=== PATIENT | male | born 1985 | race Caucasian/White ===

== ENCOUNTER 2020-09-26 07:04 | Day surgery (SDC) | payer OTHER ==
[~2020-09-26 07:04] MED LIST: Lactated Ringers 1,000 ML IV SCH; Lidocaine 1%/Sod Bicarbonate in NS 8.4% 1 ML Syringe IDERM PRN; Sodium Chloride 0.9% 10 ML Syringe FLUSH PRN
[2020-09-26] MEDS ORDERED: Lidocaine 1% 4 ML ONE (07:09)
[2020-09-26] MEDS ORDERED: Propofol 200 MG/20 ML SDV ONE (07:09)
[2020-09-26] MEDS ORDERED: fentaNYL 100 MCG/2 ML SDV ONE (07:10)
[2020-09-26] MEDS ORDERED: Midazolam 1 MG/ML 2 ML SDV ONE (07:10)
--- NOTE | 2020-09-26 07:32 | PCM.PREANE ---
Preanesthetic Assessment - Procedure Proposed Procedure: diag egd - Anesthesia/Transfusion/Family Hx Anesthesia History: Prior Anesthesia Without Reaction Type of Anesthesia Reaction: Other (see below) (some nausea with orange juice after ) Family History of Anesthesia Reaction: No Transfusion History: No Prior Transfusion(s) - Review of Systems General: No Symptoms Pulmonary: No Symptoms Cardiovascular: No Symptoms Gastrointestinal: No Symptoms Neurological: No Symptoms Other: Reports: None - Physical Assessment NPO Status Date: 09/25/20 NPO Status Time: 21:00 Vital Signs: Last Vital Signs Temp 97.5 F 09/26/20 07:05 Pulse 88 09/26/20 07:05 Resp 16 09/26/20 07:05 BP 136/102 H 09/26/20 07:05 Pulse Ox 98 09/26/20 07:05 Height: 6 ft 3 in Weight: 129.727 kg ASA Class: 2 Mental Status: Alert & Oriented x3 Airway Class: Mallampati = 1 Dentition: Reports: Normal Dentition Thyro-Mental Finger Breadths: 3 Mouth Opening Finger Breadths: 3 ROM/Head Extension: Full Lungs: Clear to Auscultation, Normal Respiratory Effort Cardiovascular: Regular Rate, Regular Rhythm - Allergies Allergies/Adverse Reactions: Allergies Allergy/AdvReac Type Severity Reaction Status Date / Time No Known Allergies Allergy Verified 09/25/20 16:02 - Acknowledgements Anesthesia Type Planned: MAC Pt an Appropriate Candidate for the Planned Anesthesia: Yes Alternatives and Risks of Anesthesia Discussed w Pt/Guardian: Yes Pt/Guardian Understands and Agrees with Anesthesia Plan: Yes PreAnesthesia Questionnaire HEENT History: Reports: Other (See Below) Other HEENT History: left otitis externa, pharyngitis, wears contacts Cardiovascular History: Reports: High Cholesterol, Hypertension Respiratory History: Reports: None Gastrointestinal History: Reports: GERD, Other (See Below) Other Gastrointestinal History: reflux gastritis Genitourinary History: Reports: None [employer] SPECIALIST History: Reports: None Musculoskeletal History: Reports: None Neurological History: Reports: None Psychiatric History: Reports: Other (See Below) Other Psychiatric History: malaise, fatigue Endocrine/Metabolic History: Reports: None Hematologic History: Reports: None Immunologic History: Reports: None Oncologic (Cancer) History: Reports: None Dermatologic History: Reports: Other (See Below) Other Dermatologic History: pilonidal cystectomy, hyperhidrosis of feet - Infectious Disease History Infectious Disease History: Reports: None - Past Surgical History Head Surgeries/Procedures: Reports: None Cardiovascular Surgical History: Reports: None Respiratory Surgical History: Reports: None GI Surgical History: Reports: None, Other (See Below) (pilonidal cyst removed) Female Surgical History: Reports: None Male Surgical History: Reports: None Endocrine Surgical History: Reports: None Neurological Surgical History: Reports: None Musculoskeletal Surgical History: Reports: Other (See Below) Other Musculoskeletal Surgeries/Procedures:: hand procedure Oncologic Surgical History: Reports: None - SUBSTANCE USE Tobacco Use Status *Q: Never Tobacco User Tobacco Use Within Last Twelve Months: No Second Hand Smoke Exposure: No Days Per Week of Alcohol Use: 0 Recreational Drug Use History: No - HOME MEDS Home Medications: Home Meds Omeprazole 20 mg PO DAILY 09/25/20 [History] Sucralfate [Carafate] 1 gm PO QID 09/25/20 [History] - CURRENT (IN HOUSE) MEDS Current Meds: Current Medications Lactated Ringer's (Ringers, Lactated) 1,000 mls @ 125 mls/hr IV ASDIRECTED ARACELI Stop: 09/26/20 23:00 Lidocaine/Sodium Bicarbonate (Buffered Lidocaine 1% In Ns 8.4%) 0.25 ml IDERM ONETIME PRN PRN Reason: Prior to IV Start Stop: 09/26/20 18:00 Sodium Chloride (Saline Flush) 10 ml FLUSH ASDIRECTED PRN PRN Reason: Keep Vein Open Stop: 09/26/20 18:00 Discontinued Medications Fentanyl (Sublimaze) Confirm Administered Dose 100 mcg .ROUTE .STK-MED ONE Stop: 09/26/20 07:11 Lidocaine HCl (Xylocaine-Mpf 1%) Confirm Administered Dose 4 mls @ as directed .ROUTE .STK-MED ONE Stop: 09/26/20 07:10 Midazolam HCl (Versed 1 Mg/Ml) Confirm Administered Dose 2 mg .ROUTE .STK-MED ONE Stop: 09/26/20 07:11 Propofol (Diprivan 20 Ml) Confirm Administered Dose 400 mg .ROUTE .STK-MED ONE Stop: 09/26/20 07:10
[2020-09-26] MEDS ORDERED: Ondansetron 4 MG/2 ML SDV ONE (08:12)
--- NOTE | 2020-09-26 08:23 | PCM.PRNOTE ---
- Free Text/Narrative Note: Date: 09/26/2020 Procedure: diagnostic upper endoscopy Indication: poorly controlled reflux Endoscopist: Chin Don MD Findings: pyloric stenosis. Small to moderate size hiatal hernia with linear erosions and erythema of the distal esophageal mucosa. Detailed Report: The patient was taken to the endoscopy suite and placed in left lateral decubitus position. Timeout was performed, monitored anesthesia care initiated. A bite-block was placed, and the endoscope was inserted into the mouth and adv anced to the duodenum. The pylorus was stenosed, and some effort was required in order to traverse with the endoscope. The duodenal mucosa appeared mildly hyperemic. A sample biopsy of duodenal mucosa was obtained with cold forceps. The scope was then withdrawn into the stomach. The gastric mucosa appeared fairly normal. A sample of mucosa near the pyloric outlet was obtained with cold forceps. On retroflexion, there was a hiatal hernia appreciated. The scope was then withdrawn into the distal esophagus. The portion of the herniated stomach appeared to be 3 to 5 cm. The Z-line was irregular, with esophageal mucosal erosion and gross inflammation. A few sample biopsies of the GE junction were obtained, as well as from the distal esophageal mucosa. Air was suctioned from the stomach, and the scope was completely withdrawn. The patient tolerated the procedure well.
--- NOTE | 2020-09-26 08:24 | PCM48HPAN ---
Post Anesthesia Note - EVALUATION WITHIN 48HRS OF ANESTHETIC Vital Signs in Normal Range: Yes Patient Participated in Evaluation: Yes Respiratory Function Stable: Yes Airway Patent: Yes Cardiovascular Function Stable: Yes Hydration Status Stable: Yes Pain Control Satisfactory: Yes Nausea and Vomiting Control Satisfactory: Yes Mental Status Recovered: Yes Vital Signs: Last Vital Signs Temp 97.5 F 09/26/20 07:05 Pulse 88 09/26/20 07:05 Resp 16 09/26/20 07:05 BP 136/102 H 09/26/20 07:05 Pulse Ox 98 09/26/20 07:05 0819 84 18 97.0 121/81 93%
== END 2020-09-26 08:49 | disposition home or self-care (01) ==
LOC: JD.SDS 07:04
PROVIDERS: ATTEND Surgery
DX: K22.70 Barrett's esophagus without dysplasia (principal); K31.89 Other diseases of stomach and duodenum; K21.9 Gastro-esophageal reflux disease without esophagitis; K44.9 Diaphragmatic hernia without obstruction or gangrene; K31.1 Adult hypertrophic pyloric stenosis; K25.9 Gastric ulcer, unspecified as acute or chronic, without hemorrhage or perforation; I10 Essential (primary) hypertension; E78.00 Pure hypercholesterolemia, unspecified; Z79.899 Other long term (current) drug therapy
CPT/HCPCS: 43239; J2001; J2250; J2405; J2704; J3010; J7120; 00731